=== PATIENT | female | born 2000 | race Caucasian/White ===

== ENCOUNTER 2023-03-20 20:08 | Emergency (ER) | payer OTHER, SELFPAY ==
[~2023-03-20 20:08] MED LIST: Iopamidol-370 76% 500 ML MDV (1 ML CHARGE) ONE
[2023-03-20] MEDS ORDERED: Morphine 4 MG/ML VIAL ONE (20:21)
[2023-03-20] MEDS ORDERED: Ondansetron PF 4 MG/2 ML Vial ONE (20:21)
[2023-03-20] MEDS ORDERED: Ketorolac Tromethamine 30 MG/ML VIAL ONE (20:26)
[2023-03-20] MEDS ORDERED: Morphine 2 MG/ML VIAL ONE (20:26)
[2023-03-20] MEDS ORDERED: PROPOFOL 20 ML ONE (21:28)
== END 2023-03-20 22:56 | disposition home or self-care (01) ==
LOC: ERS 20:08
DX: S52.502A Unspecified fracture of the lower end of left radius, initial encounter for closed fracture (principal); F17.210 Nicotine dependence, cigarettes, uncomplicated; V89.2XXA Person injured in unspecified motor-vehicle accident, traffic, initial encounter
CPT/HCPCS: 25605; 70450; 71260; 72125; 74177; 96374; 96375; 99152; 99153; G0390; J1885; J2270; J2272; J2405; J2704; Q9967